=== PATIENT | female | born 1975 | race Caucasian/White ===

== ENCOUNTER → 2018-03-20 11:30 | Outpatient (CLI) | payer BC, SELFPAY ==
[2018-03-26 16:21] LABS: HPV Reflexed? NOT INDICATED
== END ==
PROVIDERS: Family Provider Family Medicine; PCP Family Medicine; Referring Provider Nurse Practitioner Adult Health; Visit Provider Nurse Practitioner Adult Health
DX: Z01.419 Encounter for gynecological examination (general) (routine) without abnormal findings (principal)
CPT/HCPCS: 88175; G0145

== ENCOUNTER → 2018-12-17 | Outpatient (CLI) | payer BC, SELFPAY ==
[2018-12-17 17:54] LABS: Hematocrit 44.3 % (37-47); Hemoglobin 14.6 g/dL (12.0-15.0); Mean Corpuscular Hgb 30.3 pg (27.0-32.0); Mean Corpuscular Volume 91.9 fL (81-99); Mean Platelet Vol. 11.2 fl (6.2-12.0); Platelet Count 240 K/mm3 (150-450); RBC Distribution Width CV 12.6 % (11.6-14.6); RBC Distribution Width SD 42.5 fl (35.1-43.9); Red Blood Count 4.82 M/mm3 (4.2-5.4); White Blood Count 6.3 K/mm3 (4.4-11.0)
[2018-12-17 17:56] LABS: Vitamin B12 790 pg/mL (211-911)
[2018-12-17 17:59] LABS: Anion Gap 5 (5-15); BUN 19 mg/dL (7-18); BUN/Creat Ratio 16.5 RATIO (10-20); Calcium,Total 8.8 mg/dL (8.5-10.1); Chloride 109 mmol/L (98-107); Creatinine, Serum 1.15 mg/dL (0.55-1.02); EST Glomerular Filtration Rate 55 mL/min (>60); Est Glom Filt Rate - Afr Amer 67 mL/min (>60); Glucose 82 mg/dL (74-106); Iron 93 ug/dL (50-170); Magnesium 2.3 mg/dL (1.6-2.6); Potassium 4.2 mmol/L (3.5-5.1); Sodium Level 140 mmol/L (136-145)
== END | disposition home or self-care (01) ==
LOC: MFPLAB 15:01
PROVIDERS: Family Provider Family Medicine; PCP Family Medicine; Visit Provider Family Medicine
DX: R42 Dizziness and giddiness (principal)
CPT/HCPCS: 36415; 80048; 82607; 83540; 83735; 84443; 85027

== ENCOUNTER → 2021-03-11 09:41 | Outpatient (CLI) | payer BC, SELFPAY ==
--- NOTE | 2021-03-11 09:48 | ECHOD_ITS ---
Reason For Study: MURMUR Procedure This was a 2D Doppler, Color Flow transthoracic echocardiogram. Exam performed in department. Left Ventricle Normal LV size. Apical false tendon noted. Left ventricular systolic function is normal. The estimated ejection fraction is 60 %. No evidence for diastolic dysfunction. No regional wall motion abnormalities noted. Right Ventricle Normal RV size. Normal systolic function. Atria Normal left atrium. Normal right atrium. No doppler evidence for ASD. Mitral Valve There is no mitral annular calcification. Normal mitral valve. Trivial mitral valve insufficiency. Tricuspid Valve Normal tricuspid valve. Trivial tricuspid valve insufficiency. Right ventricular systolic pressure estimated to be 18 mmHg. Aortic Valve Trisinus/trileaflet aortic valve. Normal aortic valve. Pulmonic Valve The pulmonic valve is not well visualized. Great Vessels Normal sized aortic root. Pericardium/Pleural No pericardial effusion. MMode/2D Measurements & Calculations LVIDd: 5.5 cm IVSd: 0.88 cm Ao root diam: 3.6 cm LVIDs: 3.7 cm LVPWd: 0.87 cm RVDd: 4.0 cm FS: 32.3 % LAV(MOD-bp): 67.5 ml LVAd ap4: 36.6 cm2 LVAd ap2: 34.0 cm2 LAV(MOD-bp) Indexed: 35.0 ml/m2 LVLd ap4: 8.8 cm LVLd ap2: 8.9 cm LAV(MOD-sp2): 61.8 ml EDV(MOD-sp4): 129.2 ml EDV(MOD-sp2): 114.0 ml LAV(MOD-sp4): 68.8 ml EDV(sp4-el): 129.5 ml EDV(sp2-el): 110.4 ml LVAs ap4: 21.0 cm2 LVAs ap2: 19.6 cm2 LVLs ap4: 7.2 cm LVLs ap2: 7.3 cm ESV(MOD-sp4): 52.9 ml ESV(MOD-sp2): 46.4 ml ESV(sp4-el): 52.0 ml ESV(sp2-el): 44.7 ml EF(MOD-sp4): 59.0 % EF(MOD-sp2): 59.3 % EF(sp4-el): 59.9 % SV(MOD-sp4): 76.2 ml SV(MOD-sp2): 67.6 ml SV(sp4-el): 77.5 ml LA dimension(2D): 3.9 cm LA A4 area: 22.9 cm2 RA A4 area: 17.3 cm2 Doppler Measurements & Calculations MV E max ramon: 77.1 cm/sec Lat Peak E' Ramon: 11.6 cm/sec Med Peak E' Ramon: 10.4 cm/sec MV A max ramon: 67.6 cm/sec E/E' lat: 6.6 E/E' med: 7.4 MV E/A: 1.1 Ao V2 max: 161.9 cm/sec LV V1 max: 98.6 cm/sec PA V2 max: 110.6 cm/sec Ao max P.5 mmHg LV V1 max P.9 mmHg TR max ramon: 195.3 cm/sec TR max P.3 mmHg ECHO/Echo Complete Interpretation Summary Left ventricular systolic function is normal. The estimated ejection fraction is 60 %. Trivial mitral valve insufficiency. Trivial tricuspid valve insufficiency. Right ventricular systolic pressure estimated to be 18 mmHg. No evidence for diastolic dysfunction. Ordering Physician: John Robin Referring Physician: John Robin Performed By: Desiree Arzola, SOHAIL, RVT
[2021-03-11 12:17] LABS: Hematocrit 37.6 % (37-47); Hemoglobin 12.5 g/dL (12.0-15.0); Mean Corp Hgb Conc 33.2 g/dL (32-36); Mean Corpuscular Volume 90.4 fL (81-99); Mean Platelet Vol. 10.6 fl (6.2-12.0); Platelet Count 262 K/mm3 (150-450); RBC Distribution Width SD 42.6 fl (35.1-43.9); Red Blood Count 4.16 M/mm3 (4.2-5.4)
[2021-03-11 12:47] LABS: Anion Gap 7 (5-15); BUN 27 mg/dL (7-18); BUN/Creat Ratio 23.5 RATIO (10-20); Calcium,Total 8.7 mg/dL (8.5-10.1); Chloride 103 mmol/L (98-107); Creatinine, Serum 1.15 mg/dL (0.55-1.02); EST Glomerular Filtration Rate 55 mL/min (>60); Est Glom Filt Rate - Afr Amer 66 mL/min (>60); Glucose 95 mg/dL (74-106); Sodium Level 137 mmol/L (136-145); Thyroid Stim Hormone (TSH) 0.79 uIU/mL (0.358-3.74)
== END ==
PROVIDERS: PCP Family Medicine; Referring Provider Family Medicine; Visit Provider Family Medicine
DX: R42 Dizziness and giddiness (principal); R01.1 Cardiac murmur, unspecified
CPT/HCPCS: 36415; 80048; 83735; 84443; 85027; 93306

== ENCOUNTER → 2023-06-05 | Outpatient (CLI) | payer OTHER, SELFPAY ==
--- OUTSIDE RECORDS SUMMARY | 2023-06-05 17:18 | XMS RPT_ITS | CCD ---
Author Name Unknown Address [address] [place] [address] Organization [facility] Care Team Providers Care Staff Educator Name Role Phone Unavailable Primary Care Provider Unavailabl e Medications Current Medications Medication Drug Class(es) Dates Sig (Normalized) Sig (Original) 12 hr buPROPion hydrochloride 200 mg extended release oral tablet (1 source) Aminoketone Start: 10-10-2016 buPROPion (WELLBUTRIN SR) 200 MG extended release tablet Calcium (1 source) Phosphate Binder, Calcium CALCIUM PO Take by mouth 0 Active Cholecalciferol (1 source) Vitamin D Cholecalciferol (VITAMIN D-3 PO) Take by mouth 0 Active fluticasone propionate 0.05 mg/actuat metered dose nasal spray (1 source) Corticosteroid Start: 09-15-2016 take 2 spray(s) nasal route once daily fluticasone (FLONASE) 50 MCG/ACT nasal spray instill 2 sprays into each nostril once daily 0 09/15/2016 Active minocycline 50 mg oral capsule (1 source) Tetracycline-class Drug Start: 10-02-2016 minocycline (MINOCIN;DYNACIN) 50 MG capsule Multiple Vitamin (MULTIVITAMIN+ PO) (1 source) Multiple Vitamin (MULTIVITAMIN+ PO) Take by mouth 0 Active traMADol hydrochloride 50 mg oral tablet (1 source) Opioid Agonist Start: 10-14-2016 take 1 tablet by mouth twice daily traMADol (ULTRAM) 50 MG tablet take 1 tablet by mouth twice a day if needed 0 10/14/2016 Active Results Test Name Value Interpretation Reference Range Facil ity Encounters Encounter Date Encounter Type Care Provider Facility Start: 01-27-2020 End: 01-27-2020 Subsequent hospital visit by physician Elizabeth Camacho Work Phone: [facility] Laboratory Plan of Treatment Date Care Activity Detail Author Start: 12-31-2019 Influenza vaccination Flu vaccine (# 1) [place], [place] Start: 2017 Lipid panel Lipid screen [place], [place] Start: 1998 Screening for malign ant neoplasm of cervix Cervical cancer screen [place], [place] Start: 1996 DTaP/Tdap/Td vaccine (1 - Tdap) DTaP/Tdap/Td vaccine (1 - Tdap) [place], [place] Start: 1992 HIV screening HIV screen [place], [place] End: 01-27-2020 Culture, Aerobic Bacteria with Gram Stain Culture, Aerobic Bacteria with Gram Stain Microbiology Routine Once for 1 Occurrences starting 01/27/2020 until 01/27/2020 [place], [place] Payers Date Payer Category Payer 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 This clinical summary was aggregated from multiple sources. Caution should be exercised in using it in the provision of clinical care. This summary normalizes information from multiple sources, and as a consequence, information in this document may materially change the coding, format and clinical context of patient data. In addition, data may be omitted in some cases. CLINICAL DECISIONS SHOULD BE BASED ON THE PRIMARY CLINICAL RECORDS. [employer] [facility]. provides no warranty or guarantee of the accuracy or completeness of information in this document.
[2023-06-10 15:08] LABS: HPV APTIMA, High Risk Negative (Negative)
[2023-06-10 15:39] LABS: HPV Reflexed? YES, CHARGE PATIENT
== END | disposition home or self-care (01) ==
PROVIDERS: PCP Family Medicine; Referring Provider Nurse Practitioner Family; Visit Provider Nurse Practitioner Family
DX: Z00.00 Encounter for general adult medical examination without abnormal findings (principal)
CPT/HCPCS: 87624; 88175; G0145

== ENCOUNTER → 2023-11-27 | Outpatient (CLI) | payer OTHER, SELFPAY ==
[2023-11-27 15:36] LABS: Hematocrit 40.8 % (37-47); Hemoglobin 13.6 g/dL (12.0-15.0); Mean Corp Hgb Conc 33.3 g/dL (32-36); Mean Corpuscular Volume 90.1 fL (81-99); Mean Platelet Vol. 12.2 fl (6.2-12.0); Platelet Count 231 K/mm3 (150-450); RBC Distribution Width CV 12.9 % (11.6-14.6); RBC Distribution Width SD 42.8 fl (35.1-43.9); Red Blood Count 4.53 M/mm3 (4.2-5.4)
[2023-11-27 16:02] LABS: ALB/GLOB Ratio 1.2 RATIO (0.9-2.4); AST(SGOT) 23 U/L (15-37); Alanine Aminotransfer ALT/SGPT 17 U/L (13-56); Albumin, Serum 3.7 g/dL (3.2-5.0); Alkaline Phosphatase 44 U/L (45-117); Anion Gap 5 (5-15); BUN 17 mg/dL (7-18); BUN/Creat Ratio 17.6 RATIO (10-20); Calcium,Total 9.1 mg/dL (8.5-10.1); Chloride 105 mmol/L (98-107); Creatinine, Serum 0.97 mg/dL (0.55-1.02); EST Glomerular Filtration Rate 66 mL/min (>60); Est Glom Filt Rate - Afr Amer 80 mL/min (>60); Globulin 3.2 g/dL (2.2-4.2); Glucose 93 mg/dL (74-106); Potassium 3.9 mmol/L (3.5-5.1); Protein, Total 6.9 g/dL (6.4-8.2); Sodium Level 136 mmol/L (136-145); Thyroid Stim Hormone (TSH) 1.29 uIU/mL (0.358-3.74)
[2023-11-27 16:19] LABS: Hemoglobin A1c 5.1 % (3.8-5.6)
== END | disposition home or self-care (01) ==
LOC: MFPLAB 11:53
PROVIDERS: PCP Family Medicine; Visit Provider Family Medicine
DX: R63.5 Abnormal weight gain (principal); E16.2 Hypoglycemia, unspecified
CPT/HCPCS: 36415; 80053; 82533; 83036; 84443; 85027